=== PATIENT | female | born 1965 | race Caucasian/White ===

== ENCOUNTER 2018-11-16 03:00 | Emergency (ER) | payer BC ==
[2018-11-16] MEDS: Nitroglycerin 0.4 MG Tab.SL SL PRN ×2 (03:35→03:45)
[2018-11-16] MEDS ORDERED: Sodium Chloride 0.9% 10 ML Syringe FLUSH PRN (03:35)
--- NOTE | 2018-11-16 03:40 | EDM.PDOC ---
ED HPI GENERAL MEDICAL PROBLEM - General Chief Complaint: Cardiovascular Problem Stated Complaint: Chest Pressure Time Seen by Provider: 11/16/18 03:33 - History of Present Illness INITIAL COMMENTS - FREE TEXT/NARRATIVE: Olivia is a 53 y/o female who presents to the ER with complaints of chest pain. She started having midsternal/epigastric chest pain about 6 pm last night. She thought it first felt like indigestion, but it did not get better. She reports that the pain has progressively gotten worse and woke her up at 0200. The pain is constant and in her midchest region, but seems to be spreading and she can now feel it in her back region. She rates the pain 4/10. - Related Data Allergies Allergy/AdvReac Type Severity Reaction Status Date / Time No Known Allergies Allergy Verified 11/16/18 03:25 Home Meds: Home Meds . [No Known Home Meds] 11/16/18 [History] Past Medical History Cardiovascular History: Reports: None Social & Family History - Tobacco Use Smoking Status *Q: Current Every Day Smoker Tobacco Use Within Last Twelve Months: Cigarettes ED ROS GENERAL - Review of Systems Review Of Systems: See Below Constitutional: Reports: No Symptoms HEENT: Reports: No Symptoms Respiratory: Reports: No Symptoms Cardiovascular: Reports: Chest Pain Endocrine: Reports: No Symptoms GI/Abdominal: Reports: No Symptoms : Reports: No Symptoms Musculoskeletal: Reports: No Symptoms Skin: Reports: No Symptoms Neurological: Reports: No Symptoms Psychiatric: Reports: No Symptoms Hematologic/Lymphatic: Reports: No Symptoms Immunologic: Reports: No Symptoms ED EXAM, GENERAL - Physical Exam Exam: See Below Exam Limited By: No Limitations General Appearance: Alert, WD/WN, No Apparent Distress, Other (Adult female.) Ears: Hearing Grossly Normal Nose: Normal Inspection Throat/Mouth: Normal Inspection Head: Atraumatic, Normocephalic Neck: Normal Inspection Respiratory/Chest: No Respiratory Distress, Lungs Clear, Normal Breath Sounds, Other (no anterior chest tenderness, but + tenderness noted in the left posterior chest region) Cardiovascular: Regular Rate, Rhythm, No Edema, No Murmur GI/Abdominal: Normal Bowel Sounds (Female) Exam: Deferred Rectal (Female) Exam: Deferred Back Exam: Normal Inspection Extremities: Normal Inspection, Non-Tender, No Pedal Edema, Normal Capillary Refill Neurological: Alert, Oriented, CN II-XII Intact Skin Exam: Warm, Dry, Intact, Normal Color Lymphatic: No Adenopathy EKG INTERPRETATION EKG Date: 11/16/18 Rhythm: NSR Course - Vital Signs Text/Narrative:: 0335 The patient was seen by the ACCREDITATION COORDINATOR. Labs, EKG, and CXR were ordered. She was given a Nitro 0.4mg SL and her pain went from a 4/10 to 3/10, BP decreased slightly. 0349 Nitro was repeated and pain improved. She rated it "2 1/2"/10 and continuing to improve. 0415 Patient reports 0/10 pain now and mild headache. Labs reviewed. Troponin negative. Will continue to observe and plan serial Troponin in 3 hours. 0745 Serial lab results reviewed. Patient denies any further chest pain and rested thr last couple hours. Discussed with patient follow up with her PCP and possible cardiology referral in the near future. Encouraged patient to stop smoking. She was discharged to home in stable condition after instructions were given. - Orders/Labs/Meds Orders: Active Orders 24 hr Category Date Time Status Cardiac Monitoring [RC] . DIRECTED Care 11/16/18 03:34 Active Cardiac Monitoring [RC] . DIRECTED Care 11/16/18 03:35 Active EKG Documentation Completion [RC] STAT Care 11/16/18 03:35 Active Oxygen Therapy [RC] PRN Care 11/16/18 03:35 Active Pulse Oximetry [RC] CONTINUOUS Care 11/16/18 03:35 Active Chest 2V [CR] Stat Exams 11/16/18 03:37 Taken Nitroglycerin [Nitrostat] Med 11/16/18 03:35 Active 0.4 mg SL Q5M PRN Sodium Chloride 0.9% [Saline Flush] Med 11/16/18 03:35 Active 10 ml FLUSH ASDIRECTED PRN Peripheral IV Insertion Adult [OM.PC] Stat Oth 11/16/18 03:35 Ordered Saline Lock Insert [OM.PC] Stat Oth 11/16/18 03:35 Ordered Resuscitation Status Routine Resus Stat 11/16/18 03:34 Ordered Medication Orders Nitroglycerin (Nitrostat) 0.4 mg SL Q5M PRN PRN Reason: Chest Pain Stop: 11/17/18 03:36 Sodium Chloride (Saline Flush) 10 ml FLUSH ASDIRECTED PRN PRN Reason: Keep Vein Open Labs: Laboratory Tests 11/16/18 11/16/18 11/16/18 Range/Units 03:15 03:15 03:15 WBC 7.2 (4.0-10.0) x10^3/uL RBC 5.23 (4.00-5.50) x10^6/uL Hgb 14.5 (12.0-16.0) g/dL Hct 43.7 (33.0-47.0) % MCV 83.6 (78.0-93.0) fL MCH 27.7 (26.0-32.0) pg MCHC 33.2 (32.0-36.0) g/dL RDW Coeff of Moy 13.5 (10.0-15.0) % Plt Count 267 (130-400) x10^3/uL Neut % (Auto) 47.2 L (50.0-80.0) % Lymph % (Auto) 43.0 (25.0-50.0) % Stokes % (Auto) 6.6 (2.0-11.0) % Eos % (Auto) 2.5 (0.0-4.0) % Baso % (Auto) 0.7 (0.2-1.2) % PT 9.4 L (10.0-12.8) SEC INR 0.8 L (2.0-3.5) Sodium 143 (136-145) mmol/L Potassium 3.7 (3.5-5.1) mmol/L Chloride 106 (98-107) mmol/L Carbon Dioxide 25 (21-32) mmol/L Anion Gap 15.7 (10-20) mmol/L BUN 12 (7-18) mg/dL Creatinine 1.1 H (0.55-1.02) mg/dL Est Cr Clr Drug Dosing TNP Estimated GFR (MDRD) 52 Glucose 131 H (74-106) mg/dL Calcium 8.9 (8.5-10.1) mg/dL Corrected Calcium 8.90 (8.5-10.1) mg/dL Magnesium 1.9 (1.8-2.4) mg/dL Total Bilirubin 0.2 (0.2-1.0) mg/dL AST 12 L (15-37) U/L ALT 30 (14-59) U/L Alkaline Phosphatase 101 (46-116) U/L Creatine Kinase (26-192) U/L POC Troponin I (0.00-0.08) ng/mL Troponin I (<=0.056) ng/mL C-Reactive Protein 0.2 (<=0.9) mg/dL Total Protein 7.5 (6.4-8.2) g/dL Albumin 4.0 (3.4-5.0) g/dL Globulin 3.5 Albumin/Globulin Ratio 1.14 11/16/18 11/16/18 Range/Units 03:41 07:10 WBC (4.0-10.0) x10^3/uL RBC (4.00-5.50) x10^6/uL Hgb (12.0-16.0) g/dL Hct (33.0-47.0) % MCV (78.0-93.0) fL MCH (26.0-32.0) pg MCHC (32.0-36.0) g/dL RDW Coeff of Moy (10.0-15.0) % Plt Count (130-400) x10^3/uL Neut % (Auto) (50.0-80.0) % Lymph % (Auto) (25.0-50.0) % Stokes % (Auto) (2.0-11.0) % Eos % (Auto) (0.0-4.0) % Baso % (Auto) (0.2-1.2) % PT (10.0-12.8) SEC INR (2.0-3.5) Sodium (136-145) mmol/L Potassium (3.5-5.1) mmol/L Chloride (98-107) mmol/L Carbon Dioxide (21-32) mmol/L Anion Gap (10-20) mmol/L BUN (7-18) mg/dL Creatinine (0.55-1.02) mg/dL Est Cr Clr Drug Dosing Estimated GFR (MDRD) Glucose (74-106) mg/dL Calcium (8.5-10.1) mg/dL Corrected Calcium (8.5-10.1) mg/dL Magnesium (1.8-2.4) mg/dL Total Bilirubin (0.2-1.0) mg/dL AST (15-37) U/L ALT (14-59) U/L Alkaline Phosphatase (46-116) U/L Creatine Kinase 98 (26-192) U/L POC Troponin I 0.00 (0.00-0.08) ng/mL Troponin I < 0.017 (<=0.056) ng/mL C-Reactive Protein (<=0.9) mg/dL Total Protein (6.4-8.2) g/dL Albumin (3.4-5.0) g/dL Globulin Albumin/Globulin Ratio Meds: Medications Generic Name Dose Route Start Last Admin Trade Name Freq PRN Reason Stop Dose Admin Nitroglycerin 0.4 mg 11/16/18 03:35 Nitrostat SL 11/17/18 03:36 Q5M PRN Chest Pain Sodium Chloride 10 ml 11/16/18 03:35 Saline Flush FLUSH ASDIRECTED PRN Keep Vein Open - Radiology Interpretation Free Text/Narrative:: CXR=neg (final report reviewed) Departure - Departure Time of Disposition: 07:52 Disposition: Home, Self-Care 01 Condition: Good Clinical Impression: Chest pain Instructions: Nonspecific Chest Pain Referrals: PCP,None [Primary Care Provider] - Forms: ED Department Discharge Additional Instructions: 1)Tobacco Cessation encouraged 2)Monitor for further symptoms 3)Resume usual activities 4)Follow up with your PCP for further diagnostic testing if needed 5)Return to the ER as needed if symptoms return - My Orders Last 24 Hours: My Active Orders 11/16/18 03:34 Cardiac Monitoring [RC] . DIRECTED Resuscitation Status Routine 11/16/18 03:35 Cardiac Monitoring [RC] . DIRECTED EKG Documentation Completion [RC] STAT Oxygen Therapy [RC] PRN Pulse Oximetry [RC] CONTINUOUS Nitroglycerin [Nitrostat] 0.4 mg SL Q5M PRN Sodium Chloride 0.9% [Saline Flush] 10 ml FLUSH ASDIRECTED PRN Peripheral IV Insertion Adult [OM.PC] Stat Saline Lock Insert [OM.PC] Stat 11/16/18 03:37 Chest 2V [CR] Stat - Assessment/Plan Last 24 Hours: My Active Orders 11/16/18 03:34 Cardiac Monitoring [RC] . DIRECTED Resuscitation Status Routine 11/16/18 03:35 Cardiac Monitoring [RC] . DIRECTED EKG Documentation Completion [RC] STAT Oxygen Therapy [RC] PRN Pulse Oximetry [RC] CONTINUOUS Nitroglycerin [Nitrostat] 0.4 mg SL Q5M PRN Sodium Chloride 0.9% [Saline Flush] 10 ml FLUSH ASDIRECTED PRN Peripheral IV Insertion Adult [OM.PC] Stat Saline Lock Insert [OM.PC] Stat 11/16/18 03:37 Chest 2V [CR] Stat
[2018-11-16 04:06] LABS: CHLORIDE,CL 106 mmol/L (98-107); SODIUM,NA 143 mmol/L (136-145)
[2018-11-16 04:08] LABS: ANION GAP 15.7 mmol/L (10-20)
--- NOTE | 2018-11-16 08:45 | CR ---
[id number] RAD/RAD Chest PA And Lateral EXAM: RAD Chest PA And Lateral INDICATION: CHEST PAIN COMPARISON: None. DISCUSSION: Cardiomediastinal silhouette is normal in size and contour. No infiltrate, effusion, pneumothorax, or edema. IMPRESSION: Negative examination of the chest. Yosi Mazariegos MD 11/16/18 0844 Thank you for allowing us to participate in the care of your patient.
== END 2018-11-16 08:08 | disposition home or self-care (01) ==
LOC: VM.ED 03:00
DX: R07.2 Precordial pain (principal); F17.210 Nicotine dependence, cigarettes, uncomplicated
CPT/HCPCS: 36415; 71046; 80053; 82550; 83735; 84484; 85025; 85610; 86140; 93005; 99285-25